=== PATIENT | male | born 1950 | race Caucasian/White ===

== ENCOUNTER 2017-11-12 20:36 | Emergency (ER) | payer OTHER, MEDICARE ==
[~2017-11-12] VITALS: Ht 172.7 cm; Wt 85.7 kg
--- NOTE | 2017-11-12 21:03 | ED NOSE COMPLAINT ---
History of Present Illness General Chief Complaint: Epistaxis/Nasal Foreign Body Stated Complaint: NOSE BLEED CHEMO PT Source: patient, family, old records Exam Limitations: no limitations Vital Signs & Intake/Output Vital Signs & Intake/Output Vital Signs Date Time Temp Pulse Resp B/P B/P Pulse O2 O2 Flow FiO2 Mean Ox Delivery Rate 11/13 0132 164/76 11/12 2323 96.7 74 18 178/82 100 Room Air 11/12 2050 96 Room Air 11/12 2044 97.8 83 18 189/92 98 Room Air ED Intake and Output 11/13 0000 11/12 1200 Intake Total Output Total Balance Patient 189 lb Weight Weight Estimated Measurement Method Allergies Coded Allergies: No Known Allergies (11/12/17) Reconcile Medications Amoxicillin/Potassium Clav (Augmentin 875-125 Tablet) 875 MG-125 MG TABLET 1 TAB PO BID ppx sinusitis Triage Note: RECEIVED 67 YO MALE WITH C/O RIGHT NARE NOSE BLEED X 30 MINUTES. PT CURRENTLY ON LOVENOX FOR P.E. Triage Nurses Notes Reviewed? yes Onset: Abrupt Duration: hour(s): (1), constant Timing: recent history Injury Environment: home Severity: moderate Severity Numbers: 5 No Modifying Factors: none Associated Symptoms: denies HPI: 67-year-old male with history of esophageal and lymph node cancer, pulmonary embolism for which he is now on Lovenox presents status post developing bilateral nose bleed approximately an hour ago unresolved with holding pressure. Patient was recently seen at [facility] for the same which time he was on xarelto- given the nose bleed pt was changed by his oncologist out of [place] to lovenox bid. last chemo dose was held secondary to elevated bp. he deneis recent trauma, chest pain, dyspnea. no other bleeding. (Dean Agosto) Past History Travel History Traveled to [place] past 21 day No Medical History Any Pertinent Medical History? see below for history Neurological: NONE EENT: NONE Cardiovascular: hypertension Respiratory: NONE Gastrointestinal: NONE Hepatic: NONE Renal: NONE Musculoskeletal: NONE Psychiatric: NONE Endocrine: NONE Blood Disorders: NONE Cancer(s): ESOPHAGEAL, LYMPH NODE Surgical History Surgical History: none Psychosocial History What is your primary language Romanian Tobacco Use: Quit >30 days ago Family History Hx Contributory? No (Dean Agosto) Review of Systems Review of Systems Constitutional: Reports: see HPI. Comments Review of systems: See HPI, All other systems negative. Constitutional, no chills no fever, HEENT: no sore throat no congestion Cardiovascular: No chest pain Skin: no rashes, no change in skin Respiratory: No dyspnea no cough no sputum GI: No nausea no vomiting Muscle skeletal: No joint pain, no back pain Neurologic: , no headache Heme/endocrine: No bruising Immunology: No lymphadenopathy (Dean Agosto) Physical Exam Physical Exam General Appearance: well developed/nourished, alert, awake Nose: active bleeding (b/l) Comments: Well-developed well-nourished patient in no apparent distress. Head/Face: Atraumatic,no facial swelling Eyes: PERRL, EOMI Ear:External auditory canals clear Nose: atraumatic.Normal inspection: Active bleeding bilaterally no septal hematoma Throat: Moist mucous membranes.Pharynx normal. No pharyngeal erythema/exudate seen. No stridor/drooling or assymetry. No swelling or edema. Neck: Supple, no lymphadenopathy, FROM blood noted to the posterior pharynx Back: FROM Cardiovascular: Regular rate and rhythms no murmur Respiratory: No respiratory distress. Patient speaking in full complete sentences. Breath sounds clear to auscultation bilaterally: NO W/R/R Extremities: full range of motion Neuro: awake, alert, and oriented to person, place and time. There were no obvious focal neurologic abnormalities. Skin: Warm & dry;No appreciable rash on exposed skin Psych: Mood affect normal, normal memory normal judgment. (Dean Agosto) Progress Differential Diagnoses I considered the following diagnoses in my evaluation of the patient: [epistaxis Plan of Care: Current Medications Sig/Keeley Start time Last Medication Dose Stop Time Status Admin Amoxicillin/ 1,000 MG ONCE ONE 11/12 2345 UNVr Clavulanate Potassium 11/12 2346 (Augmentin) b/l rhino rocket placed by me after instilled with thrombin and afrin with resolution of bleeding. pt seen and eval by dr lucas who agrees [facility] plan we wee continue to monitor 2130 pt resting in nad, no bleeding 2250 pts right rhino rocket dislodged, repalced by me we will continue to monitor. 2330 pt resting in nad 0050 no bleeding, pt feels comfortable with plan and dc. he will return in 48 hours, case d/w dr lucas- pts radiology practitioner assistant oncololgist advised lovenox hold per our guidelines, per dr lucas will hold lovenox 3 doses. Initial ED EKG: none (Dean Agosto) Departure Departure Disposition: HOME OR SELF CARE Clinical Impression Primary Impression: Epistaxis Additional Instructions: hold lovenox through wednesday. return on wednesday after 7pm to see dr lucas for reevalution and rhino rocket removal. augmentin for prophylaxis. return with any concerns Departure Forms: Customer Survey General Discharge Information Prescriptions: Current Visit Scripts Amoxicillin/Potassium Clav (Augmentin 875-125 Tablet) 1 TAB PO BID #10 TAB (Dean Agosto) Departure Condition: Stable Comments 11/13/17, 1:40am... pt feeling better. no active bleeding... pt to return on wednesday after 7pm to have nasal trumpets removed. pt to skip two doses of lovenox to allow for healing. discussed at length. PA/FEDERAL JUDICIAL LAW CLERK Co-Sign Statement Statement: ED Attending supervision documentation- [x] I saw and evaluated the patient. I have also reviewed all the pertinent lab results and diagnostic results. I agree with the findings and the plan of care as documented in the PA's/FEDERAL JUDICIAL LAW CLERK's documentation. 11/13/17, 1:40am... pt feeling better. no active bleeding... pt to return on wednesday after 7pm to have nasal trumpets removed. pt to skip two doses of lovenox to allow for healing. discussed at length. [] I have reviewed the ED Record and agree with the PA's/FEDERAL JUDICIAL LAW CLERK's documentation. [] Additions or exceptions (if any) to the PAs/FEDERAL JUDICIAL LAW CLERK's note and plan are summarized below: [] (Christine PADRON,Leonel Gr)
[2017-11-12] MEDS ORDERED: AUGMENTIN 875-1 EACH PO (23:47)
[2017-11-13 01:32] VITALS: BP 164/76
== END 2017-11-13 01:45 ==
LOC: ERH 20:36
DX: R04.0 Epistaxis (principal)
CPT/HCPCS: J3490